=== PATIENT | male | born 1995 | race Asian ===

== ENCOUNTER 2024-06-29 18:23 | Emergency (ER) | payer OTHER ==
[2024-06-29 18:30] VITALS: BP 124/78; PULSE 82; RESP 18; TEMP 98.5; BMI 25.0
[2024-06-29] MEDS ORDERED: RABIES VACCINE (PCEC)/PF 2.5 UNIT/VIAL IM ONE (19:52)
[2024-06-29] MEDS: RABIES IMMUNE GLOBULIN 300 UNITS/1 ML VIAL IM ONE (20:14)
[2024-06-29] MEDS: RABIES VACCINE (PCEC)/PF 2.5 UNIT/VIAL IM ONE (20:15)
== END 2024-06-29 20:24 | disposition home or self-care (01) ==
LOC: JERFT 18:23
PROC: 3E0234Z Introduction of Serum, Toxoid and Vaccine into Muscle, Percutaneous Approach (ICD-10-PCS; principal; 2024-06-29)
DX: S61.551A Open bite of right wrist, initial encounter (principal); W55.01XA Bitten by cat, initial encounter; Z29.14 Encounter for prophylactic rabies immune globulin
CPT/HCPCS: 90375; 90675; 99284-25

== ENCOUNTER 2024-07-06 19:09 | Emergency (ER) | payer OTHER ==
[2024-07-06 19:28] VITALS: BP 124/80; PULSE 74; RESP 16; TEMP 98.3; BMI 25.0
[2024-07-06] MEDS ORDERED: RABIES VACCINE (PCEC)/PF 2.5 UNIT/VIAL IM ONE (19:43)
[2024-07-06] MEDS: RABIES VACCINE (PCEC)/PF 2.5 UNIT/VIAL IM ONE (19:55)
== END 2024-07-06 19:56 | disposition home or self-care (01) ==
LOC: JERFT 19:09
PROC: 3E0234Z Introduction of Serum, Toxoid and Vaccine into Muscle, Percutaneous Approach (ICD-10-PCS; principal; 2024-07-06)
DX: Z23 Encounter for immunization (principal)
CPT/HCPCS: 90675; 99282-25